=== PATIENT | female | born 1970 | race Caucasian/White ===

== ENCOUNTER 2017-10-09 17:29 | Observation (INO) | payer OTHER ==
[~2017-10-09] VITALS: Ht 177.8 cm; Wt 99.8 kg
[~2017-10-09 17:29] MED LIST: NORPTMEDS CO
[2017-10-09 18:26] LABS: Urine Bacteria FEW /hpf (None Seen); Urine Blood Negative /uL (Negative); Urine Specific Gravity 1.004 (1.001-1.035); Urine WBC 3 /hpf (0 - 5)
[2017-10-09 18:28] LABS: Basophils # (auto) 0.1 uL; Basophils % (auto) 0.9 % (0.0-2.0); Eosinophils # (auto) 0.4 uL; Eosinophils % (auto) 5.8 % (0.0-7.0); Hematocrit 43.8 % (36.0-46.0); Hemoglobin 14.7 g/dL (12.2-16.2); Lymphocytes % (auto) 31.9 % (10.0-50.0); Mean Corpuscular Hemoglobin 29.5 pg (28.0-32.0); Mean Corpuscular Hgb Conc. 33.4 g/dL (32.0-36.0); Mean Corpuscular Volume 88.3 fL (80.0-100.0); Monocytes # (auto) 0.7 uL; Monocytes % (auto) 11.7 % (0.0-12.0); Neutrophils # (auto) 3.1 uL; Neutrophils % (auto) 49.7 % (37.0-80.0); Platelet Count (auto) 296 10^3/uL (140-450); Red Blood Cells 4.96 10^6/uL (4.0-5.20); Red Cell Distribution Width 13.1 % (11.8-14.3); White Blood Cell 6.3 10^3/uL (4.4-10.8)
[2017-10-09 18:47] LABS: Alanine Aminotransferase 28 U/L (13-56); Albumin 3.8 g/dL (3.4-5.0); Alkaline Phosphatase 57 U/L (45-117); Anion Gap 7 (5-15); Aspartate Aminotransferase 19 U/L (15-37); BUN/Creatinine Ratio 11.1; Bilirubin, Total 0.6 mg/dL (0.2-1.0); Blood Urea Nitrogen 11 mg/dL (7-18); Calcium 8.6 mg/dL (8.5-10.1); Carbon Dioxide 25 mmol/L (21-32); Chloride 107 mmol/L (98-107); GFR African American 77 mL/min; GFR Non-African American 64 mL/min; Glucose 80 mg/dL (74-106); Magnesium 2.3 mg/dL (1.6-2.6); Potassium 3.5 mmol/L (3.5-5.1); Sodium 139 mmol/L (136-145); Total Protein 7.2 g/dL (6.4-8.2)
[2017-10-09 20:06] LABS: INR 0.93 (0.9-1.15); Partial Thromboplastin Time 27.6 sec (23.78-33.04)
[2017-10-09 22:14] VITALS: BP 114/74
== END 2017-10-09 22:16 | disposition home or self-care (01) | DRG 203 ==
LOC: EDBD 17:29 → ER 17:29 → OVERFLOW 17:30 → ER 22:16
PROVIDERS: ADMIT Family Medicine; ATTEND Family Medicine
DX: R07.89 Other chest pain (principal); R94.6 Abnormal results of thyroid function studies
CPT/HCPCS: 36415; 71045; 80053; 81001; 81025; 83735; 84443; 84484; 85025; 85379; 85610; 85730; 93005; 99285; G0378